=== PATIENT | female | born 1945 | race Caucasian/White ===

== ENCOUNTER 2017-12-06 11:57 | Day surgery (SDC) | payer MEDICARE, MEDICAID ==
[~2017-12-06] VITALS: Ht 162.6 cm; Wt 56.0 kg
[2017-12-06] MEDS ORDERED: fentaNYL/PF 50MCG/1 ML 2ML syringe ONE (12:39)
[2017-12-06] MEDS ORDERED: MIDAZolam 5mg/5ml vial ONE (12:39)
[2017-12-06] MEDS ORDERED: ALPR-624 PO (12:51)
[2017-12-06] MEDS ORDERED: ALB0.5UD IH (12:51)
[2017-12-06] MEDS ORDERED: ATOR10TA87 PO (12:51)
[2017-12-06] MEDS ORDERED: IBUP-1984 PO (12:51)
[2017-12-06] MEDS ORDERED: SOUR1000 PO (12:51)
[2017-12-06] MEDS ORDERED: CALC600T12 (12:51)
[2017-12-06] MEDS ORDERED: BIOT10004 PO (12:51)
[2017-12-06] MEDS ORDERED: HYDR-3972 PO (12:51)
[2017-12-06] MEDS ORDERED: ASPI81TA52 PO (12:51)
[2017-12-06] MEDS ORDERED: LUTIEN PO (12:51)
[2017-12-06] MEDS ORDERED: D-3 (12:51)
[2017-12-06] MEDS ORDERED: HYDR500C18 PO (12:51)
[2017-12-06] MEDS ORDERED: ALBU8.5H8 INH (12:51)
[2017-12-06] MEDS ORDERED: ASCO1TAB13 (12:51)
[2017-12-06 12:57] VITALS: BP 128/77
[2017-12-06 14:48] VITALS: BP 131/72
[2017-12-06 14:58] VITALS: BP 127/80
[2017-12-06 15:08] VITALS: BP 104/56
[2017-12-06 15:18] VITALS: BP 113/67
== END 2017-12-06 15:30 | disposition home or self-care (01) ==
LOC: GI LAB 11:57
PROVIDERS: ATTEND Internal Medicine Gastroenterology
DX: R19.4 Change in bowel habit (principal); I10 Essential (primary) hypertension; E78.5 Hyperlipidemia, unspecified; M19.90 Unspecified osteoarthritis, unspecified site; Z79.82 Long term (current) use of aspirin; Z86.74 Personal history of sudden cardiac arrest; Z87.891 Personal history of nicotine dependence; Z79.1 Long term (current) use of non-steroidal anti-inflammatories (NSAID); Z79.891 Long term (current) use of opiate analgesic; Z79.899 Other long term (current) drug therapy
CPT/HCPCS: 45378; G0500; J2250; J3010; J7030; 99153; A4620